=== PATIENT | female | born 1980 | race Caucasian/White ===

== ENCOUNTER 2021-01-03 08:58 | Emergency (ER) | payer OTHER ==
[~2021-01-03] VITALS: Ht 162.6 cm; Wt 79.4 kg
[~2021-01-03 08:58] MED LIST: CELEXA; IMITREX4 MG/0.5 M SQ; SOMA250 MG; SUMAVEL DO6 MG/0.5 M; TOPAMAX100 MG; TRAMADOL 50 MG50 MG; XANAX 0.5 MG0.5 MG
[2021-01-03] MEDS ORDERED: LEXAPRO20 MG PO (09:46)
[2021-01-03 10:33] LABS: URINE BLOOD 3+ (Negative); URINE CLARITY CLEAR; URINE COLOR YELLOW; URINE GLUCOSE-RANDOM NEGATIVE (Negative); URINE KETONES 1+ (Negative); URINE LEUKOCYTES-REFLEX NEGATIVE (Negative); URINE NITRITE-REFLEX NEGATIVE (Negative); URINE PROTEIN 1+ (Negative); URINE SPECIFIC GRAVITY 1.025 (1.005-1.030); URINE UROBILINOGEN 0.2 E.U./dl (0.2-1.0)
[2021-01-03 10:38] LABS: ICTOTEST (BILI CONFIRMATORY) Negative (Negative); URINE BILIRUBIN 1+ (Negative)
[2021-01-03 10:46] LABS: BACTERIA-REFLEX 1-9 Few /HPF (None Seen); CASTS None Seen /LPF (None Seen); CRYSTALS None Seen /LPF (None Seen); MUCUS >6 Heavy strn/LPF (None Seen); SQUAMOUS 4-10 Moderate /LPF (0-3); URINE WBC-REFLEX 0-5 Rare /HPF (0-5)
[2021-01-03 11:02] LABS: ABSOLUTE BASOPHILS 0.1 thou/uL (0.0-0.2); ABSOLUTE EOSINOPHILS 0.1 thou/uL (0.0-0.7); ABSOLUTE LYMPHOCYTES 2.2 thou/uL (0.8-5.3); ABSOLUTE MONOCYTES 0.9 thou/uL (0.0-1.2); ABSOLUTE NEUTROPHILS 11.5 thou/uL (1.6-8.1); BASOPHILS 0.4 %; EOSINOPHILS 0.8 %; HEMATOCRIT 42.8 % (37.0-47.0); HEMOGLOBIN 14.4 gm/dL (12.0-15.0); LYMPHOCYTES 14.9 %; MCH 31.7 pg (26.0-34.0); MCHC 33.8 g/dL (28.0-37.0); MPV 6.9 fl. (7.2-11.1); NUCLEATED RBCS 0 /100WBC; PLATELET COUNT* 499 thou/uL (150-400); POLYS 77.9 %; RBC 4.55 mil/uL (4.20-5.00); RDW-CV 12.8 % (10.5-14.5); WBC 14.8 thou/uL (4.0-11.0)
[2021-01-03 11:15] LABS: CALCIUM 9.6 mg/dL (8.5-10.1); CREATININE 0.6 mg/dL (0.6-1.3); POTASSIUM 3.8 mmol/L (3.5-5.1)
[2021-01-03 11:19] LABS: ALBUMIN 4.4 g/dL (3.4-5.0); TOTAL BILIRUBIN 0.3 mg/dL (<0.1-1.0)
[2021-01-03] MEDS ORDERED: FLOMAX0.4 MG PO (14:16)
[2021-01-03] MEDS ORDERED: CEPHALEXIN500 MG PO (14:16)
[2021-01-03] MEDS ORDERED: IBUPROFEN 800800 M1 PO (14:16)
[2021-01-03] MEDS ORDERED: PHENERGAN 25 MG25 M1 PO (14:16)
[2021-01-03] MEDS ORDERED: HYDROCODON-ACE1 EAC7 PO (14:18)
[2021-01-03 14:25] VITALS: BP 137/94
--- NOTE | 2021-01-03 16:31 | EKG ---
[place] [address] ELECTROCARDIOGRAM REPORT Name: AMY ALEXANDRA Room: [facility]#: [id number] Admission: 01/03/21 Attend Phys: Discharge: 01/03/21 Date of : 80 Date of Service: 01/03/21 1043 Report #: [id number] THIS REPORT FOR: //name// [facility] ED Test Date: 2021-01-03 Test Time: 10:43:07 Pat Name: AMY ALEXANDRA Department: Room: Gender: F Construction Technician: : [id number] Requested By: Liz Ziegler Order Number: [id number] MD: Carlito Stroud Measurements Intervals [place] Rate: 77 P: 43 MS: 131 QRS: 24 QRSD: 102 T: 33 QT: 385 QTc: 436 Interpretive Statements Sinus rhythm Baseline wander in lead(s) V1,V2 No previous ECG available for comparison Electronically Signed On 01-03-2021 16:31:03 CDT by Carlito Stroud [email or web address] <ELECTRONICALLY SIGNED> By: Carlito Stroud MD, [facility] 01/03/21 1631 1043 1043 Carlito Stroud MD, [facility] /EPI
== END 2021-01-03 14:25 | disposition home or self-care (01) ==
LOC: M.ERS 08:58
PROVIDERS: Nurse Practitioner Family
DX: N20.1 Calculus of ureter (principal); N83.202 Unspecified ovarian cyst, left side; G43.909 Migraine, unspecified, not intractable, without status migrainosus; M79.7 Fibromyalgia; Z98.51 Tubal ligation status; Z90.711 Acquired absence of uterus with remaining cervical stump; Z90.49 Acquired absence of other specified parts of digestive tract